=== PATIENT | male | born 1970 | race African-American/Black ===

== ENCOUNTER 2024-04-24 11:47 | Emergency (ER) | payer MEDICAID, OTHER ==
[~2024-04-24] VITALS: Ht 165.1 cm; Wt 85.0 kg
[2024-04-24 12:04] VITALS: BP 133/87; PULSE 78; RESP 18; TEMP 98.3; O2SAT 99
[2024-04-24] MEDS ORDERED: CLOT15CR27 TP (16:21)
== END 2024-04-24 20:25 | disposition left against medical advice (07) ==
LOC: ER 12:15
DX: B35.6 Tinea cruris (principal)
CPT/HCPCS: 99282